=== PATIENT | female | born 1945 | race Caucasian/White ===

== ENCOUNTER → 2016-09-15 | Outpatient (CLI) | payer BC ==
[2016-09-15 15:50] LABS: BASO % 0.3 %; BASO ABS # 0.02 K/uL (0-0.2); COMPLETE YES; HEMATOCRIT 41.2 % (37-47); IG% 0.2 %; LYMPH % 15.9 %; LYMPH ABS # 0.92 K/uL (1.2-3.4); MEAN CELL VOLUME 86.7 fL (80-100); MEAN CORPUSCULAR HEMOGLOBIN 29.5 pg (25-34); MEAN PLATELET VOLUME 10.1 fL (7.4-10.4); MONO % 8.5 %; NEUT % 74.1 %; PLATELET COUNT 248 K/uL (130-400); RED BLOOD COUNT 4.75 M/uL (4.2-5.4); WHITE BLOOD COUNT 5.79 K/uL (4.8-10.8)
[2016-09-15 16:06] LABS: ALT/SGPT 22 U/L (12-78); BLOOD UREA NITROGEN 15 mg/dl (7-18); CALCIUM 9.4 mg/dl (8.5-10.1); CARBON DIOXIDE 29 mmol/L (21-32); CHLORIDE 101 mmol/L (98-107); GLUCOSE 106 mg/dl (70-99); POTASSIUM 3.8 mmol/L (3.5-5.1); SODIUM 135 mmol/L (136-145)
[2016-09-15 16:17] LABS: ALB/GLOB RATIO 1.4 (0.9-2); ALKALINE PHOSPHATASE 63 U/L (45-117); AST/SGOT 11 U/L (15-37)
== END | disposition home or self-care (01) ==
LOC: C.LABSPEC 15:16
PROVIDERS: ATTEND Internal Medicine
DX: R53.83 Other fatigue (principal); E03.9 Hypothyroidism, unspecified; R11.10 Vomiting, unspecified

== ENCOUNTER 2024-10-05 21:17 | Observation (INO) ==
--- NOTE | 2024-10-05 22:04 | Emergency Department Note ---
Impression & Plan Acute hyponatremia, Visual disturbance, Slow transit constipation ED Provider Note CHIEF COMPLAINT: Visual disturbances HISTORY OF PRESENT ILLNESS: This 79-year-old female patient presents to the emergency department via private vehicle companied by her for evaluation of visual disturbances. The patient has been here twice in the past 3 weeks. She was initially evaluated after a fall and found to have a mild vertebral body compression fracture at L1 and incidental degenerative changes. The patient has followed with Dr. Morfin was placed in the a back brace. She states she was seen back here about a week ago for constipation and that she believes to be an abdominal hernia. The patient states she has had bowel movements and her abdomen is now softer. She denies any pain surrounding the hernia. She states that yesterday, she developed some spots in her vision and seeing shadows on her bedsheet as well as her 's hand when he brought her medications. She states the spots primarily were in the light fixture and on the television, but she did also noticed them on her 's shirt as well. She states that the visual disturbances come and go. She does report a history of migraine with aura and states this is not like her aura at all. She does not really have a headache. She denies any trouble with her speech or memory. She denies any chest pain or difficulty breathing. No weakness. She has been laid up in bed the past 3 to 4 days due to the constipation and use of MiraLAX. She states she then developed some nausea and vomiting and was worried about injuring her back so remained in bed. The patient denies any numbness or tingling. No facial droop. She is eating and drinking without difficulty. She has not tried any medication for her symptoms. She denies any history of similar symptoms in the past. Pt. denies head injury with the initial fall, but now is questioning if she may have struck her head and have internal injury. History provided by: Patient REVIEW OF SYSTEMS: A 10 system review of systems was performed with positives and pertinent negatives listed in the history of present illness. All other systems were reviewed and are negative. ALLERGIES: NKDA PHYSICAL EXAM: VITALS: Vitals are noted on the nurse's note and reviewed by myself. GENERAL: This is a 79-year-old female, in no acute distress, nondiaphoretic, well-developed well-nourished. SKIN: The skin was without rashes, erythema, edema, or bruising. There is no tenting of the skin. Capillary refill less than 2 seconds. HEAD: Normocephalic atraumatic. EARS: External auditory canals clear, tympanic membranes pearly rivera without erythema or effusion bilaterally. No hemotympanum. Negative choudhury sign EYES: Pupils equal round and reactive to light and accommodation. Conjunctivae without injection, sclerae without icterus. Extraocular movements intact. NOSE: Patent, turbinates without inflammation or discharge. No sinus tenderness. MOUTH: Mucous membranes moist. Tonsils are not enlarged. Pharynx without erythema or exudate. Uvula midline. Airway patent. Tongue does not deviate. NECK: Supple without nuchal rigidity. No lymphadenopathy. Cervical spine is nontender. No JVD. HEART: Regular rate and rhythm without murmurs gallops or rubs. LUNGS: Clear to auscultation bilaterally without wheezes, rales or rhonchi. No retractions or accessory muscle use. MUSCULOSKELETAL: No muscle atrophy, erythema, or edema noted. Full range of motion without joint tenderness in all extremities. No tenderness to palpation. Normal gait. Strength 5/5 throughout. NEURO: Patient was alert and oriented to person place and time. Normal sensation to light and sharp touch. Deep tendon reflexes 2+ throughout. No focal neurological deficits. An order was placed for continuous alarm security or surveillance monitor. The monitor showed a normal sinus rhythm at a ventricular rate of 68 bpm, per my interpretation. EKG was reviewed by myself and found to be Normal Sinus Rhythm at a rate of 67 beats per minute and per my interpretation reveals no ST elevation or depression. No T wave inversion. When compared to EKG completed on 12/24/2022, no significant change was noted. Imaging as interpreted by myself and the radiologist revealed no acute findings, with radiologist interpretation as above. I agree with the radiologist's findings as based upon my independent interpretation. EMERGENCY DEPARTMENT COURSE: The patient was evaluated as above. The patient presents to the emergency department due to visual disturbances. The symptoms seemed to start yesterday evening, about 24 hours ago. They have been intermittent in nature. The patient is currently being managed for lumbar compression fracture at L1 and subsequently constipation. She was on MiraLAX and developed some nausea and vomiting over the past 2 days. IV access obtained, labs were drawn. Labs reviewed. Per my interpretation, no significant leukocytosis or anemia. No thrombocytopenia. Coags normal. Renal, liver function without significant abnormality. Troponin is 5.9. Patient was found to be hyponatremic with a sodium of 121. Potassium is 4.2. Magnesium is 2.0. UA with trace ketones, trace leukocyte esterace. UDS negative. CT imaging as above. No ICH or other acute abnormalities. The patient was updated on the laboratory findings. I do suspect the hyponatremia is contributing to her symptoms. Given the hyponatremia, I do recommend inpatient care. The patient was agreeable. I discussed the case with Dr. Cardoso, Hospitalist physician for [facility]. He did agree to evaluate the patient for admission. Please see his dictation regarding ongoing management and care. Case was discussed with the attending physician. I attest that I have personally reviewed the patient medication list. I attest that I have reviewed the patient's blood pressure and it was found to be mildly elevated. Further management by the hospitalist. GCS: 15 In the evaluation and treatment of this patient the following differential diagnoses were entertained: electrolyte abnormality, metabolic abnormality, trauma, glaucoma,CRAO, CRVO, vitreous detachment, retinal detachment, CVA, TIA, ICH, concussion, migraine, malignancy, as well as other pathologies. The chart was completed utilizing [employer]pipe Speech voice recognition software. Grammatical errors, random word insertions, pronoun errors, and incomplete sentences are an occasional consequence of this system due to software limitations, ambient noise, and hardware issues. Any formal questions or concerns about the content, text, or information contained within the body of this dictation should be directly addressed to the provider for clarification. Past Med/Surg History Problem List Visual disturbance (Acute) Acute hyponatremia (Acute) Constipation (Acute) Adnexal mass Cystocele Slow transit constipation (Acute) Aortic insufficiency Mitral regurgitation Pelvic prolapse Migraine headache with aura Hypothyroidism Medical History Chronic lymphocytic thyroiditis Esophageal spasm Bronchospasm Asthma Surgical History Hx of cataract surgery S/P adenoidectomy S/P tonsillectomy Family History Mother Gallbladder disease Hypertension Heart disease Lung disease Father Heart disease Parkinsons disease Sister Heart disease Hypertension Seizures Aunt Multiple sclerosis Breast cancer Grandmother (Maternal) Colon cancer Grandmother (Paternal) Colon cancer Social History Smoking Status: Never smoker Second Hand Exposure: No; Hx Alcohol Use: Yes Hx Substance Use: No Preferred Language: Arabic Visual Impairment: No Limitations Hearing Ability: Normal Beliefs That Will Affect Care: None marital status: marital status details: lives with partner Current Living Situation: Significant Other current occupational status: employed Feels Safe at Home: Yes Childhood Exposure to Second-Hand Smoke: Yes Diet: regular during the past year weight has: remained stable Dental Care, Regularly: Yes Physical Activity Frequency: 3-4 Times per Week Physical Activity Frequency Comment: 3 mile walks Seatbelt Use: always Sunscreen Use: Yes Allergies Allergies Allergy/AdvReac Type Severity Reaction Status Date / Time polyethylene glycol 3350 AdvReac Intermediate Vomiting Verified 10/05/24 23:20 [From Miralax] Home Meds Home Medications Medication Instructions Recorded Confirmed cholecalciferol (vitamin D3) 25 25 mcg PO DAILY 09/28/24 10/05/24 mcg (1,000 unit) tablet (Vitamin D3) docusate sodium 100 mg capsule 100 mg PO DAILY 09/28/24 10/05/24 (Colace) ibuprofen 200 mg tablet 200 mg PO Q6H PRN Pain 09/28/24 10/05/24 Previous Rx's Medication Instructions Recorded levothyroxine 112 mcg tablet 112 mcg PO DAILY #90 tabs 03/29/24 Results & Data (ED) Vital Signs Vital Signs - 24 hr 10/05/24 21:23 10/05/24 21:48 10/05/24 21:59 Temperature 36.7 C Temperature Source Temporal Artery Scan Pulse Rate 85 68 Pulse Rate [Finger] 70 Pulse Rhythm [Finger] Respiratory Rate 16 16 Respiratory Depth Normal Blood Pressure 140/71 Blood Pressure [Right Arm] 140/73 Blood Pressure Mean 94 Blood Pressure Mean [Right Arm] 95 Pulse Oximetry 96 96 Oxygen Delivery Method Room Air Room Air Sepsis Recent Fever Within 48 Hours No Sepsis New/Unexplained Change in Mental Status No Sepsis Action Taken by Nursing No Action Required 10/05/24 22:12 10/05/24 22:27 10/05/24 22:57 Temperature Temperature Source Pulse Rate Pulse Rate [Finger] 67 70 76 Pulse Rhythm [Finger] Regular Respiratory Rate 98 H 16 16 Respiratory Depth Normal Blood Pressure Blood Pressure [Right Arm] 135/68 139/53 L 138/66 Blood Pressure Mean Blood Pressure Mean [Right Arm] 90 81 90 Pulse Oximetry 100 94 100 Oxygen Delivery Method Room Air Room Air Room Air Sepsis Recent Fever Within 48 Hours Sepsis New/Unexplained Change in Mental Status Sepsis Action Taken by Nursing 10/05/24 23:12 10/06/24 00:00 10/06/24 01:00 Temperature Temperature Source Pulse Rate Pulse Rate [Finger] 73 68 65 Pulse Rhythm [Finger] Respiratory Rate 16 16 16 Respiratory Depth Normal Normal Blood Pressure Blood Pressure [Right Arm] 144/72 H 128/60 118/60 Blood Pressure Mean Blood Pressure Mean [Right Arm] 96 82 79 Pulse Oximetry 99 98 98 Oxygen Delivery Method Room Air Room Air Room Air Sepsis Recent Fever Within 48 Hours Sepsis New/Unexplained Change in Mental Status Sepsis Action Taken by Nursing 10/06/24 01:54 10/06/24 02:00 Temperature Temperature Source Pulse Rate 65 Pulse Rate [Finger] 64 Pulse Rhythm [Finger] Respiratory Rate 16 Respiratory Depth Normal Blood Pressure Blood Pressure [Right Arm] 93/59 L Blood Pressure Mean Blood Pressure Mean [Right Arm] 70 Pulse Oximetry 98 Oxygen Delivery Method Room Air Sepsis Recent Fever Within 48 Hours Sepsis New/Unexplained Change in Mental Status Sepsis Action Taken by Nursing Laboratory Data 10/05/24 21:36 10/06/24 00:10 Lab Results 10/05/24 10/05/24 10/05/24 Range/Units 21:36 22:13 22:21 WBC 6.44 (4.8-10.8) K/ul RBC 4.23 (4.20-5.40) M/uL Hgb 12.7 (12.0-16.0) g/dl Hct 34.9 L (37.0-47.0) % MCV 82.5 (80.0-100.0) fL MCH 30.0 (25.0-34.0) pg MCHC 36.4 H (32.0-36.0) g/dL RDW Std Deviation 38.8 (36.4-46.3) fL RDW Coeff of Ignacio 13.1 (11.5-14.5) % Plt Count 306 (130-400) K/uL MPV 9.1 L (9.4-12.4) fL Immature Gran % (Auto) 0.3 % Neut % (Auto) 68.1 % Lymph % (Auto) 18.3 % [place] % (Auto) 9.9 % Eos % (Auto) 2.6 % Baso % (Auto) 0.8 % Neut # (Auto) 4.38 (1.40-6.50) K/uL Lymph # (Auto) 1.18 L (1.20-3.40) K/uL [place] # (Auto) 0.64 H (0.11-0.59) K/uL Eos # (Auto) 0.17 (0.00-0.50) K/uL Baso # (Auto) 0.05 (0.00-0.20) K/uL Immature Gran # (Auto) 0.02 (0.01-0.20) K/uL PT 10.8 (9.0-12.0) Seconds INR 1.0 (0.9-1.1) APTT 29 (21-31) Seconds PTT Ratio 1.1 Sodium 121 L (136-145) mmol/L Potassium 4.2 (3.5-5.1) mmol/L Chloride 88 L (98-107) mmol/L Carbon Dioxide 24 (21-32) mmol/L Anion Gap 9 (3-11) BUN 18 (6-23) mg/dl Creatinine 1.04 (0.6-1.2) mg/dl Est Cr Clr Drug Dosing 36.9 ml/min eGFR 55.01 BUN/Creatinine Ratio 17.3 (10-20) Glucose 110 H (70-99(Fasting)) mg/dl POC Glucose 116 H (70-99) mg/dl Calcium 9.8 (8.6-10.3) mg/dl Magnesium 2.0 (1.7-2.4) mg/dl Total Bilirubin 1.4 H (0.2-1.0) mg/dl AST 16 (13-39) U/L ALT 12 (7-52) U/L Alkaline Phosphatase 77 (34-104) U/L Troponin I High Sens 5.9 (0-14) pg/ml Total Protein 7.0 (6.0-8.3) gm/dl Albumin 4.4 (3.4-5.0) gm/dl Globulin 2.6 (2.5-4.0) gm/dl Albumin/Globulin Ratio 1.7 (0.9-2) TSH (0.300-4.500) uIu/ml Urine Color Urine Appearance (Clear) Urine pH (4.5-7.5) Ur Specific [place] (1.000-1.030) Urine Protein (Negative) Urine Glucose (UA) (Negative) Urine Ketones (Negative) Urine Blood (Negative) Urine Nitrite (Negative) Urine Bilirubin (Negative) Urine Urobilinogen (Negative) Ur Leukocyte Esterase (Negative) Urine WBC (Auto) (0-5) /hpf Urine RBC (Auto) (0-2) /hpf U Hyaline Cast (Auto) (0-2) /lpf U Epithel Cells (Auto) (0-2) /hpf Urine Bacteria (Auto) (None Seen) Urine Osmolality (500-800) mOsm/kg Ur Random Sodium mmol/L Urine Comment Urine Opiates Screen (Neg) Ur Methadone, Qual (Neg) Urine Fentanyl Screen (Neg) Urine Barbiturates (Neg) Ur Phencyclidine (PCP) (Neg) U Amphetamin/Meth Scrn (Neg) MDMA (Ecstasy) Screen (Neg) U Benzodiazepines Scrn (Neg) Ur Cocaine Metabolite (Neg) U Marijuana (THC) Screen (Neg) Blood Type A Positive Antibody Screen NEGATIVE 10/05/24 10/06/24 Range/Units 23:20 00:10 WBC (4.8-10.8) K/ul RBC (4.20-5.40) M/uL Hgb (12.0-16.0) g/dl Hct (37.0-47.0) % MCV (80.0-100.0) fL MCH (25.0-34.0) pg MCHC (32.0-36.0) g/dL RDW Std Deviation (36.4-46.3) fL RDW Coeff of Ignacio (11.5-14.5) % Plt Count (130-400) K/uL MPV (9.4-12.4) fL Immature Gran % (Auto) % Neut % (Auto) % Lymph % (Auto) % [place] % (Auto) % Eos % (Auto) % Baso % (Auto) % Neut # (Auto) (1.40-6.50) K/uL Lymph # (Auto) (1.20-3.40) K/uL [place] # (Auto) (0.11-0.59) K/uL Eos # (Auto) (0.00-0.50) K/uL Baso # (Auto) (0.00-0.20) K/uL Immature Gran # (Auto) (0.01-0.20) K/uL PT (9.0-12.0) Seconds INR (0.9-1.1) APTT (21-31) Seconds PTT Ratio Sodium 126 L (136-145) mmol/L Potassium (3.5-5.1) mmol/L Chloride (98-107) mmol/L Carbon Dioxide (21-32) mmol/L Anion Gap (3-11) BUN (6-23) mg/dl Creatinine (0.6-1.2) mg/dl Est Cr Clr Drug Dosing ml/min eGFR BUN/Creatinine Ratio (10-20) Glucose (70-99(Fasting)) mg/dl POC Glucose (70-99) mg/dl Calcium (8.6-10.3) mg/dl Magnesium (1.7-2.4) mg/dl Total Bilirubin (0.2-1.0) mg/dl AST (13-39) U/L ALT (7-52) U/L Alkaline Phosphatase (34-104) U/L Troponin I High Sens (0-14) pg/ml Total Protein (6.0-8.3) gm/dl Albumin (3.4-5.0) gm/dl Globulin (2.5-4.0) gm/dl Albumin/Globulin Ratio (0.9-2) TSH 1.911 (0.300-4.500) uIu/ml Urine Color Yellow Urine Appearance Clear (Clear) Urine pH 6.5 (4.5-7.5) Ur Specific [place] 1.008 (1.000-1.030) Urine Protein Negative (Negative) Urine Glucose (UA) Negative (Negative) Urine Ketones Trace H (Negative) Urine Blood Negative (Negative) Urine Nitrite Negative (Negative) Urine Bilirubin Negative (Negative) Urine Urobilinogen Negative (Negative) Ur Leukocyte Esterase Trace H (Negative) Urine WBC (Auto) 0-5 (0-5) /hpf Urine RBC (Auto) 0-2 (0-2) /hpf U Hyaline Cast (Auto) 0-2 (0-2) /lpf U Epithel Cells (Auto) 0-2 (0-2) /hpf Urine Bacteria (Auto) None Seen (None Seen) Urine Osmolality 86 L (500-800) mOsm/kg Ur Random Sodium < 10 mmol/L Urine Comment Urine Opiates Screen Neg (Neg) Ur Methadone, Qual Neg (Neg) Urine Fentanyl Screen Neg (Neg) Urine Barbiturates Neg (Neg) Ur Phencyclidine (PCP) Neg (Neg) U Amphetamin/Meth Scrn Neg (Neg) MDMA (Ecstasy) Screen Neg (Neg) U Benzodiazepines Scrn Neg (Neg) Ur Cocaine Metabolite Neg (Neg) U Marijuana (THC) Screen Neg (Neg) Blood Type Antibody Screen Administered Medications Discontinued Medications Sodium Chloride (Nss) 1,000 mls @ 999 mls/hr IV .Q1H1M ONE Stop: 10/05/24 22:56 Last Infusion: 10/06/24 02:00 Dose: Infused Documented By: Admin: 10/05/24 23:27 Dose: 999 mls/hr Documented By: DEMAR Ioversol (Optiray 320 125ml) 118 ml IV ONCE ONE Stop: 10/05/24 23:00 Last Admin: 10/05/24 22:59 Dose: 118 ml Documented By: GES Imaging Data Radiologist's Impression: Head CT 10/05/24 21:57 Exam(s): CT HEAD Without Contrast EXAM: CT Head Without Intravenous Contrast CLINICAL HISTORY: Reason for exam: neuro deficit, acute stroke suspected. TECHNIQUE: Axial computed tomography images of the head/brain without intravenous contrast. CTDI is 37 mGy and DLP is 624 mGy-cm. Automated exposure control was utilized for the study. A dose lowering technique was utilized adhering to the principles of ALARA. COMPARISON: Prior head CT from December 24, 2022. FINDINGS: Brain: Unremarkable. No hemorrhage. No significant white matter disease. No edema. Ventricles: Unremarkable. No ventriculomegaly. Bones/joints: Unremarkable. No acute fracture. Soft tissues: Unremarkable. Sinuses: Unremarkable as visualized. No acute sinusitis. Mastoid air cells: Unremarkable as visualized. No mastoid effusion. IMPRESSION: No evidence of acute intracranial pathology. Electronically signed by: Vickie Lee MD 10/06/24 00:34 AM Head CTA 10/05/24 21:57 Exam(s): CTA HEAD With Contrast IV Amt: 118cc opti 320 EXAM: CT Angiography Head With Intravenous Contrast CLINICAL HISTORY: Reason for exam: neuro deficit, acute stroke suspected. TECHNIQUE: Axial computed tomographic angiography images of the head with intravenous contrast. CTDI is 37 mGy and DLP is 624 mGy-cm. Automated exposure control was utilized for the study. A dose lowering technique was utilized adhering to the principles of ALARA. MIP reconstructed images were created and reviewed. CONTRAST: Patient received 118cc opti 320 of IV contrast COMPARISON: No relevant prior studies available. FINDINGS: The dural venous sinuses are patent. Right internal carotid artery: No acute findings. Intracranial segment is patent with no significant stenosis. No aneurysm. Right anterior cerebral artery: Unremarkable. No occlusion or significant stenosis. No aneurysm. Right middle cerebral artery: Unremarkable. No occlusion or significant stenosis. No aneurysm. Right posterior cerebral artery: Unremarkable. No occlusion or significant stenosis. No aneurysm. Right vertebral artery: Unremarkable as visualized. Left internal carotid artery: No acute findings. Intracranial segment is patent with no significant stenosis. No aneurysm. Left anterior cerebral artery: Unremarkable. No occlusion or significant stenosis. No aneurysm. Left middle cerebral artery: Unremarkable. No occlusion or significant stenosis. No aneurysm. Left posterior cerebral artery: Unremarkable. No occlusion or significant stenosis. No aneurysm. Left vertebral artery: Unremarkable as visualized. Basilar artery: Unremarkable. No occlusion or significant stenosis. No aneurysm. IMPRESSION: Negative CT angiogram of the head. Electronically signed by: Vickie Lee MD 10/06/24 00:54 AM Neck CTA 10/05/24 21:57 Exam(s): CTA NECK With Contrast IV Amt: 118cc opti 320 EXAM: CT Angiography Neck With Intravenous Contrast CLINICAL HISTORY: Reason for exam: neuro deficit, acute stroke suspected. TECHNIQUE: Routine carotid CT angiography protocol was performed with intravenous contrast. NASCET criteria using the distal ICAs for comparison were used for evaluation of stenoses. CTDI is 37 mGy and DLP is 624 mGy-cm. Automated exposure control was utilized for the study. A dose lowering technique was utilized adhering to the principles of ALARA. MIP reconstructed images were created and reviewed. CONTRAST: Patient received 118cc opti 320 of IV contrast COMPARISON: None. FINDINGS: VASCULATURE: Right common carotid artery: Unremarkable. No occlusion or significant stenosis. No dissection. Right internal carotid artery: Unremarkable. Extracranial segment is patent with no occlusion or significant stenosis. No dissection. Right external carotid artery: Unremarkable. No occlusion. Right vertebral artery: Unremarkable. No occlusion or significant stenosis. No dissection. Left common carotid artery: Unremarkable. No occlusion or significant stenosis. No dissection. Left internal carotid artery: Unremarkable. Extracranial segment is patent with no occlusion or significant stenosis. No dissection. Left external carotid artery: Unremarkable. No occlusion. Left vertebral artery: Unremarkable. No occlusion or significant stenosis. No dissection. NECK: Bones/joints: Severe spinal canal stenosis at C4-5. No acute fracture. Soft tissues: Prominent mediastinal lymph nodes. Prominent cervical lymph nodes and lingual tonsils. Lung apices: Clear. CAROTID STENOSIS REFERENCE USING NASCET CRITERIA: % ICA stenosis = (1 - narrowest ICA diameter/diameter of distal cervical ICA) x 100. Mild - <50% stenosis. Moderate - 50-69% stenosis. Severe - 70-94% stenosis. Near occlusion - 95-99% stenosis. Occluded - 100% stenosis. IMPRESSION: Negative CTA neck. Electronically signed by: Vickie Lee MD 10/06/24 01:44 AM Discharge Plan Visit Data Chief Complaint: Visual Disturbance Stated Complaint: EXPERIENCING VISUAL/NEUROLOGICAL DISTURBANCES ED Provider: Bill Khalil ED Midlevel Provider: Dona Barber Discharge Problem: Acute hyponatremia, Visual disturbance, Slow transit constipation Patient Disposition: Admitted As Inpatient Condition: Good Forms Stand Alone Forms: [facility] Prescriptions Prescriptions: No Action levothyroxine 112 mcg tablet 112 mcg PO DAILY Qty: 90 3RF ibuprofen 200 mg Tablet 200 mg PO Q6H PRN (Reason: Pain) docusate sodium [Colace] 100 mg Capsule 100 mg PO DAILY Patient Comments: Depending on how pt feels, she may take 200mg instead of 100mg - 09/28/24 cholecalciferol (vitamin D3) [Vitamin D3] 25 mcg (1,000 unit) Tablet 25 mcg PO DAILY Referrals Referrals: Tonya Love MD [Primary Care Provider] -
[2024-10-05 22:07] LABS: Hematocrit (blood only) 34.9 % (37.0-47.0); Hemoglobin 12.7 g/dl (12.0-16.0); Immature Granulocytes # (auto) 0.02 K/uL (0.01-0.20); Immature Granulocytes % (auto) 0.3 %; Mean Corpuscular Hemoglobin 30.0 pg (25.0-34.0); Mean Corpuscular Volume 82.5 fL (80.0-100.0); Platelet Count 306 K/uL (130-400); RDW Standard Deviation 38.8 fL (36.4-46.3); Red Blood Count 4.23 M/uL (4.20-5.40); White Blood Count 6.44 K/ul (4.8-10.8)
[2024-10-05 22:26] LABS: Alanine Aminotransferase 12.0 U/L (7-52); Albumin Globulin Ratio 1.7 (0.9-2); Alkaline Phosphatase 77.0 U/L (34-104); Anion Gap 9.0 (3-11); Bilirubin,Total 1.4 mg/dl (0.2-1.0); Blood Urea Nitrogen 18.0 mg/dl (6-23); Calcium 9.8 mg/dl (8.6-10.3); Carbon Dioxide 24.0 mmol/L (21-32); Chloride 88.0 mmol/L (98-107); Creatinine Clr Calc Pharmacy 36.9 ml/min; Globulin 2.6 gm/dl (2.5-4.0); Glucose 110.0 mg/dl (70-99(Fasting)); Magnesium 2.0 mg/dl (1.7-2.4); Potassium 4.2 mmol/L (3.5-5.1); Sodium 121.0 mmol/L (136-145); Total Protein 7.0 gm/dl (6.0-8.3)
[2024-10-05 22:42] LABS: INR 1.0 (0.9-1.1); Partial Thromboplastin Time 29 Seconds (21-31); Prothrombin Time 10.8 Seconds (9.0-12.0)
[2024-10-05] MEDS: OPTIRAY 320 125ml IV ONE (22:59)
[2024-10-05] MEDS: SODIUM CHLORIDE 0.9% 1,000 ML IV ONE (23:27)
--- NOTE | 2024-10-05 23:30 | History & Physical Report ---
Date of Service October 05, 2024 Assessment & Plan (1) Acute hyponatremia: (2) Visual disturbance: (3) Hypothyroidism: Plan This is a 79 year old female with a PMH of hypothyroidism, lumbar vertebral fracture - coming in with visual disturbance; found to have hyponatremia Acute Hyponatremia - likely from volume depletion from the large BM and nausea/vomiting - IV fluids started - check urine sodium and urine osm - sodium q4 Visual Disturbance - likely from the change in sodium - head CT and CTA head/neck are pending due to recent fall (on 09/24) Hypothyroidism - cont synthroid - check TSH History of Present Illness Chief Complaint: Blurry Vision, spots Primary Care Provider: Tonya Love MD This is a 79 year old female with a PMH of hypothyroidism, lumbar vertebral fracture - coming in with visual disturbance. On 09/24, presented to the ER for a mechanical fall; found to have an L1 fracture for which she has been using a brace. States that she's been having constipation and was using miralax and other bowel care medications at home; she then had a large bowel movement. After this, she felt nausea/vomiting and had difficulty keeping anything down. Her concern grew when she felt she was seeing spots and her vision wasn't at baseline. On arrival here, labs were drawn and she had a significant hyponatremia with sodium at 121. Head CT and CTA head/neck were ordered and pending. Allergies Allergy/AdvReac Type Severity Reaction Status Date / Time polyethylene glycol 3350 AdvReac Intermediate Vomiting Verified 10/05/24 23:20 [From Miralax] Home Medications Medication Instructions Recorded Confirmed Type levothyroxine 112 mcg tablet 112 mcg PO DAILY #90 tabs 03/29/24 10/05/24 Rx cholecalciferol (vitamin D3) 25 25 mcg PO DAILY 09/28/24 10/05/24 History mcg (1,000 unit) tablet (Vitamin D3) docusate sodium 100 mg capsule 100 mg PO DAILY 09/28/24 10/05/24 History (Colace) ibuprofen 200 mg tablet 200 mg PO Q6H PRN Pain 09/28/24 10/05/24 History Past Med/Surg History Problem List (Updated 10/05/24 @ 23:36 by GEORGE EmeryC) Visual disturbance (Acute) Acute hyponatremia (Acute) Constipation (Acute) Adnexal mass Cystocele Slow transit constipation (Acute) Aortic insufficiency Mitral regurgitation Pelvic prolapse Migraine headache with aura Hypothyroidism Medical History Asthma Bronchospasm Chronic lymphocytic thyroiditis Esophageal spasm Surgical History Hx of cataract surgery S/P adenoidectomy S/P tonsillectomy Family History Mother Gallbladder disease Hypertension Heart disease Lung disease Father Heart disease Parkinsons disease Sister Heart disease Hypertension Seizures Aunt Multiple sclerosis Breast cancer Grandmother (Maternal) Colon cancer Grandmother (Paternal) Colon cancer Social History Smoking Status: Never smoker Second Hand Exposure: No; Hx Alcohol Use: Yes Hx Substance Use: No Preferred Language: Romanian Visual Impairment: No Limitations Hearing Ability: Normal Beliefs That Will Affect Care: None marital status: marital status details: lives with partner Current Living Situation: Significant Other current occupational status: employed Feels Safe at Home: Yes Childhood Exposure to Second-Hand Smoke: Yes Diet: regular during the past year weight has: remained stable Dental Care, Regularly: Yes Physical Activity Frequency: 3-4 Times per Week Physical Activity Frequency Comment: 3 mile walks Seatbelt Use: always Sunscreen Use: Yes Review of Systems Review of Systems: Constitutional: No Weight Change, No Fever, No Chills, No Night Sweats, No Fatigue, No Malaise ENT/Mouth: No Hearing Changes, No Ear Pain, No Nasal Congestion, No Sinus Pain, No Hoarseness, No sore throat, No Rhinorrhea, No Swallowing Difficulty Eyes: No Eye Pain, No Swelling, No Redness, No Foreign Body, No Discharge, No Vision Changes Cardiovascular: No Chest Pain, No SOB, No PND, No Dyspnea on Exertion, No Orthopnea, No Claudication, No Edema, No Palpitations Respiratory: No Cough, No Sputum, No Wheezing, No Smoke Exposure, No Dyspnea Gastrointestinal: No Nausea, No Vomiting, No Diarrhea, No Constipation, No Pain, No Heartburn, No Anorexia, No Dysphagia, No Hematochezia, No Melena, No Flatulence, No Jaundice Genitourinary: No Dysmenorrhea, No DUB, No Dyspareunia, No Dysuria, No Urinary Frequency, No Hematuria, No Urinary Incontinence, No Urgency, No Flank Pain, No Urinary Flow Changes, No Hesitancy Musculoskeletal: No Arthralgias, No Myalgias, No Joint Swelling, No Joint Stiffness, No Back Pain, No Neck Pain, No Injury History Skin: No Skin Lesions, No Pruritis, No Hair Changes, No Breast/Skin Changes, No Nipple Discharge Neuro: No Weakness, No Numbness, No Paresthesias, No Loss of Consciousness, No Syncope, No Dizziness, No Headache, No Coordination Changes, No Recent Falls Psych: No Anxiety/Panic, No Depression, No Insomnia, No Personality Changes, No Delusions, No Rumination, No SI/HI/AH/VH, No Social Issues, No Memory Changes, No Violence/Abuse Hx., No Eating Concerns Heme/Lymph: No Bruising, No Bleeding, No Transfusions History, No Lymphadenopathy Endocrine: No Polyuria, No Polydipsia, No Temperature Intolerance Physical Exam Physical Exam: VITALS: Reviewed. WEIGHT/BMI reviewed. GEN: Healthy appearing, well-developed, NAD. PSYCH: Good Judgment. AOx3. Normal memory, mood, and affect. HEENT -Head: NC/AT; -Eyes: PERRL, EOMI. No discharge or redn ess; -Ears: External ears are normal. Normal TMs. -Nose: Normal nares. -Mouth and throat: MMM. Normal gums, muc giacomo, palate,. Good dentition. NECK: Supple, with no masses. CV: RRR, no m/r/g. LUNGS: CTAB, no w/r/c. ABD: Soft, NT/ND, NBS, no masses or organomegaly. : N/A SKIN: Warm, well perfused. No skin rashes or abnormal lesions. MSK: No deformities, Normal gait. EXT: No clubbing, cyanosis, or edema. NEURO: Ambulating with no limitations. Normal muscle strength and tone. No focal deficits. Results & Data Results & Data Vital Signs (Past 12 Hours) Vital Signs Temp Pulse Pulse Resp BP BP Pulse Ox 10/05/24 22:57 76 16 138/66 100 10/05/24 22:27 70 16 139/53 L 94 10/05/24 22:12 67 98 H 135/68 100 10/05/24 21:59 68 10/05/24 21:48 70 16 140/73 96 10/05/24 21:23 36.7 C 85 16 140/71 96 O2 Del Method 10/05/24 22:57 Room Air 10/05/24 22:27 Room Air 10/05/24 22:12 Room Air 10/05/24 21:59 10/05/24 21:48 Room Air 10/05/24 21:23 Room Air Laboratory Results 10/05/24 10/05/24 10/05/24 22:21 22:13 21:36 WBC 6.44 RBC 4.23 Hgb 12.7 Hct 34.9 L MCV 82.5 MCH 30.0 MCHC 36.4 H RDW Std Deviation 38.8 RDW Coeff of Ignacio 13.1 Plt Count 306 MPV 9.1 L Immature Gran % (Auto) 0.3 Neut % (Auto) 68.1 Lymph % (Auto) 18.3 Vernon % (Auto) 9.9 Eos % (Auto) 2.6 Baso % (Auto) 0.8 Neut # (Auto) 4.38 Lymph # (Auto) 1.18 L Vernon # (Auto) 0.64 H Eos # (Auto) 0.17 Baso # (Auto) 0.05 Immature Gran # (Auto) 0.02 PT 10.8 INR 1.0 APTT 29 PTT Ratio 1.1 Sodium 121 L Potassium 4.2 Chloride 88 L Carbon Dioxide 24 Anion Gap 9 BUN 18 Creatinine 1.04 Est Cr Clr Drug Dosing 36.9 eGFR 55.01 BUN/Creatinine Ratio 17.3 Glucose 110 H POC Glucose 116 H Calcium 9.8 Magnesium 2.0 Total Bilirubin 1.4 H AST 16 ALT 12 Alkaline Phosphatase 77 Troponin I High Sens 5.9 Total Protein 7.0 Albumin 4.4 Globulin 2.6 Albumin/Globulin Ratio 1.7 Blood Type A Positive Antibody Screen NEGATIVE PG Care Time/CCT Total # of Minutes Spent Total Time Spent with Patient: Total time spent is greater than 50% in coordination of care (as documented) at patient's floor/unit and/or counseling patient: Coding Level of Care Code 53066 INT INP/OBS CARE 3/75MIN Diagnoses Acute hyponatremia E87.1 Visual disturbance H53.9 Hypothyroidism E03.9
[2024-10-05 23:48] LABS: Appearance Urine Clear (Clear); Bacteria Urine Automated None Seen (None Seen); Cast Urine Automated 0-2 /lpf (0-2); Epithelial Cell Urine Auto 0-2 /hpf (0-2); Glucose Urine UA Negative (Negative); RBC Urine Automated 0-2 /hpf (0-2); WBC Urine Automated 0-5 /hpf (0-5)
[2024-10-06 00:08] LABS: Amphetamines+Metham, Urine Neg (Neg); MDMA (Ecstacy), Urine Neg (Neg); Marijuana, Urine Neg (Neg)
[2024-10-06 00:34] LABS: Sodium 126.0 mmol/L (136-145)
--- NOTE | 2024-10-06 00:34 | CT Scan Report ---
Exam(s): CT HEAD Without Contrast EXAM: CT Head Without Intravenous Contrast CLINICAL HISTORY: Reason for exam: neuro deficit, acute stroke suspected. TECHNIQUE: Axial computed tomography images of the head/brain without intravenous contrast. CTDI is 37 mGy and DLP is 624 mGy-cm. Automated exposure control was utilized for the study. A dose lowering technique was utilized adhering to the principles of ALARA. COMPARISON: Prior head CT from December 24, 2022. FINDINGS: Brain: Unremarkable. No hemorrhage. No significant white matter disease. No edema. Ventricles: Unremarkable. No ventriculomegaly. Bones/joints: Unremarkable. No acute fracture. Soft tissues: Unremarkable. Sinuses: Unremarkable as visualized. No acute sinusitis. Mastoid air cells: Unremarkable as visualized. No mastoid effusion. IMPRESSION: No evidence of acute intracranial pathology. Electronically signed by: Vickie Lee MD 10/06/24 00:34 AM
--- NOTE | 2024-10-06 00:55 | CT Scan Report ---
Exam(s): CTA HEAD With Contrast IV Amt: 118cc opti 320 EXAM: CT Angiography Head With Intravenous Contrast CLINICAL HISTORY: Reason for exam: neuro deficit, acute stroke suspected. TECHNIQUE: Axial computed tomographic angiography images of the head with intravenous contrast. CTDI is 37 mGy and DLP is 624 mGy-cm. Automated exposure control was utilized for the study. A dose lowering technique was utilized adhering to the principles of ALARA. MIP reconstructed images were created and reviewed. CONTRAST: Patient received 118cc opti 320 of IV contrast COMPARISON: No relevant prior studies available. FINDINGS: The dural venous sinuses are patent. Right internal carotid artery: No acute findings. Intracranial segment is patent with no significant stenosis. No aneurysm. Right anterior cerebral artery: Unremarkable. No occlusion or significant stenosis. No aneurysm. Right middle cerebral artery: Unremarkable. No occlusion or significant stenosis. No aneurysm. Right posterior cerebral artery: Unremarkable. No occlusion or significant stenosis. No aneurysm. Right vertebral artery: Unremarkable as visualized. Left internal carotid artery: No acute findings. Intracranial segment is patent with no significant stenosis. No aneurysm. Left anterior cerebral artery: Unremarkable. No occlusion or significant stenosis. No aneurysm. Left middle cerebral artery: Unremarkable. No occlusion or significant stenosis. No aneurysm. Left posterior cerebral artery: Unremarkable. No occlusion or significant stenosis. No aneurysm. Left vertebral artery: Unremarkable as visualized. Basilar artery: Unremarkable. No occlusion or significant stenosis. No aneurysm. IMPRESSION: Negative CT angiogram of the head. Electronically signed by: Vickie Lee MD 10/06/24 00:54 AM
[2024-10-06 01:06] LABS: Thyroid Stimulating Hormone 1.911 uIu/ml (0.300-4.500)
--- NOTE | 2024-10-06 01:45 | CT Scan Report ---
Exam(s): CTA NECK With Contrast IV Amt: 118cc opti 320 EXAM: CT Angiography Neck With Intravenous Contrast CLINICAL HISTORY: Reason for exam: neuro deficit, acute stroke suspected. TECHNIQUE: Routine carotid CT angiography protocol was performed with intravenous contrast. NASCET criteria using the distal ICAs for comparison were used for evaluation of stenoses. CTDI is 37 mGy and DLP is 624 mGy-cm. Automated exposure control was utilized for the study. A dose lowering technique was utilized adhering to the principles of ALARA. MIP reconstructed images were created and reviewed. CONTRAST: Patient received 118cc opti 320 of IV contrast COMPARISON: None. FINDINGS: VASCULATURE: Right common carotid artery: Unremarkable. No occlusion or significant stenosis. No dissection. Right internal carotid artery: Unremarkable. Extracranial segment is patent with no occlusion or significant stenosis. No dissection. Right external carotid artery: Unremarkable. No occlusion. Right vertebral artery: Unremarkable. No occlusion or significant stenosis. No dissection. Left common carotid artery: Unremarkable. No occlusion or significant stenosis. No dissection. Left internal carotid artery: Unremarkable. Extracranial segment is patent with no occlusion or significant stenosis. No dissection. Left external carotid artery: Unremarkable. No occlusion. Left vertebral artery: Unremarkable. No occlusion or significant stenosis. No dissection. NECK: Bones/joints: Severe spinal canal stenosis at C4-5. No acute fracture. Soft tissues: Prominent mediastinal lymph nodes. Prominent cervical lymph nodes and lingual tonsils. Lung apices: Clear. CAROTID STENOSIS REFERENCE USING NASCET CRITERIA: % ICA stenosis = (1 - narrowest ICA diameter/diameter of distal cervical ICA) x 100. Mild - <50% stenosis. Moderate - 50-69% stenosis. Severe - 70-94% stenosis. Near occlusion - 95-99% stenosis. Occluded - 100% stenosis. IMPRESSION: Negative CTA neck. Electronically signed by: Vickie Lee MD 10/06/24 01:44 AM
[2024-10-06] MEDS ORDERED: ACETAMINOPHEN 325 MG TAB PO PRN (03:21)
[2024-10-06] MEDS ORDERED: ONDANSETRON INJ 2 MG/ML 2 ML VIAL IV PRN (03:21)
[2024-10-06] MEDS ORDERED: MELATONIN 3 MG TAB PO PRN (03:21)
[2024-10-06] MEDS: LEVOTHYROXINE SODIUM 112 MCG TABLET PO SCH (05:38)
--- NOTE | 2024-10-06 10:49 | Nephrology Consultation ---
Date of Consultation October 06, 2024 Assessment & Plan (1) Acute hyponatremia: (2) Hypothyroidism: (3) Visual disturbance: (4) Constipation: Plan 79 y o F , otherwise healthy except some degenerative disease and history of constipation, recently had a fall and mild closed lumbar vertebral fracture, presented to the hospital with visual disturbances, nausea, vomiting and noted to have acute hyponatremia, sodium was 121. During recent ER visits her sodium was noted to be slightly low at 132. Workup otherwise unremarkable, has not been on thiazide diuretics. She was given IV normal saline and admission as her blood pressure was relatively low and sodium rapidly improved to 126 within few hours. Unclear whether her symptoms were related to hyponatremia but that remains a possibility. Hyponatremia possibly multifactorial but mainly due to nausea, vomiting and probably excessive free water intake. --Sodium rapidly improved to 126 within few hours, will not make any other changes, maintain regular p.o. intake and liberalize salt in diet as blood pressure generally low. Repeat serum sodium now if there is rapid correction, may need to give some D5W. Suggested maybe monitoring little bit longer and overnight but she is looking forward to going home if sodium stays stable or improved. --Avoid excessive free water intake but no strict fluid restriction as she has been struggling with constipation. --If discharged this afternoon recommended she does lab Tuesday to make sure sodium staying stable. --May benefit from gastroenterology evaluation for bothersome constipation despite trying or dietary measures and MiraLAX. Thank you for allowing me to participate in your patient's care. It was a pleasure to see Larissa. History of Present Illness Reason for Consultation: Acute hyponatremia Attending Physician: Sincere Hong MD History of Present Illness Ms. Larissa Triplett is A 79-year-old female with recent fall and vertebral body compression fracture admitted to the hospital with acute hyponatremia after she presented with some , visual disturbances. Nephrology consult requested for management of acute hyponatremia. EMR records were reviewed in detail during patient's visit. Larissa presented to ED yesterday after noticing visual disturbances over the last 2 to 3 days. She was initially evaluated on 09/18/24 after a fall and found to have a mild vertebral body compression fracture at L1 and incidental degenerative changes. She had a back brace placed and is following with orthopedic surgery. She had been presented to ER on 09/28/2024 with constipation despite taking Colace and MiraLAX at home. She was given an enema in ER and instructed to continue those at home. She reports having nausea and vomiting after she took MiraLAX. Also started noticing some visual disturbances with seeing vivid colors on different objects and screens which was not there and became concerned. Her blood pressure has been variable but occasionally low with no history of hypertension. Record review over the last 2 to 3 weeks showed her sodium has been slightly low around 132 with no prior history of hyponatremia. On admission yesterday her sodium was 121. Has decent kidney function, baseline creatinine 1.0-1.1 mg/dl. She was given IV normal saline and repeat sodium was 126. Blood pressure has been stable. Urine osmolality was 86 and urine sodium was less than 10. She has not been on thiazide diuretics. She has been eating and drinking normally and reports maybe she has been drinking little too much. No known history of adrenal insufficiency. Has history of hypothyroidism but has been on levothyroxine and TSH was normal. CT abdomen pelvis showed otherwise normal kidney and adrenal gland. No other intra- abdominal pathology other than constipation. Never smoker. Denies excessive alcohol intake. Prior chest x-ray was unremarkable. CT head CTA head neck on admission was unremarkable. No personal history of malignancy. Previously had colonoscopy and mammogram. [employer]. This morning she feels otherwise well, reports complete resolution of visual disturbances. No nausea. Blood pressure relatively low but asymptomatic and that is her baseline. Allergies Allergy/AdvReac Type Severity Reaction Status Date / Time polyethylene glycol 3350 AdvReac Intermediate Vomiting Verified 10/05/24 23:20 [From Miralax] Home Medications Medication Instructions Recorded Confirmed Type levothyroxine 112 mcg tablet 112 mcg PO DAILY #90 tabs 03/29/24 10/05/24 Rx cholecalciferol (vitamin D3) 25 25 mcg PO DAILY 09/28/24 10/05/24 History mcg (1,000 unit) tablet (Vitamin D3) docusate sodium 100 mg capsule 100 mg PO DAILY 09/28/24 10/05/24 History (Colace) ibuprofen 200 mg tablet 200 mg PO Q6H PRN Pain 09/28/24 10/05/24 History Patient History Medical History Chronic lymphocytic thyroiditis Esophageal spasm Bronchospasm Asthma Surgical History Hx of cataract surgery S/P adenoidectomy S/P tonsillectomy Family History Mother Gallbladder disease Hypertension Heart disease Lung disease Father Heart disease Parkinsons disease Sister Heart disease Hypertension Seizures Aunt Multiple sclerosis Breast cancer Grandmother (Maternal) Colon cancer Grandmother (Paternal) Colon cancer Social History Smoking Status: Never smoker Second Hand Exposure: No; Hx Alcohol Use: Yes Alcohol type: beer and wine Hx Substance Use: No Preferred Language: Central [place] Communication Ability: Effective Visual Impairment: No Limitations Hearing Ability: Normal Returned Telephone Equipment Appraiser Required: No Beliefs That Will Affect Care: None marital status: marital status details: lives with partner Current Living Situation: Spouse and Significant Other current occupational status: employed Other Information That Helps Us Care for You: No Feels Safe at Home: Yes Safety Concerns: Feels Safe At This Time Childhood Exposure to Second-Hand Smoke: Yes Diet: regular during the past year weight has: remained stable Dental Care, Regularly: Yes Physical Activity Frequency: 3-4 Times per Week Physical Activity Frequency Comment: 3 mile walks Seatbelt Use: always Sunscreen Use: Yes Assistive Devices: Glasses Review of Systems Review of Systems: All systems reviewed & are unremarkable except as noted in HPI & below Physical Exam Constitutional: WD/WN, vitals as above no acute distress Eyes: + anicteric sclerae ENMT: Ears: no hearing impairment Neck: normal visual inspection Respiratory: no respiratory distress Auscultation: lungs clear to auscultation bilaterally Cardiovascular: Rate/Rhythm: regular rate and regular rhythm Extremities: no edema Gastrointestinal (Abdomen): Inspection/Auscultation: abdomen normal to inspection Musculoskeletal: Extremities: extremities normal to inspection Skin: no rashes, warm and dry Neurologic: no focal motor deficits and not confused Psychiatric: Orientation: alert and oriented x 3 Affect: euthymic affect Results & Data Vital Signs (Past 12 Hours) Vital Signs Temp Pulse Pulse Resp BP BP BP 10/06/24 08:13 36.5 C 76 18 108/67 10/06/24 03:58 10/06/24 03:58 36.4 C L 75 14 127/69 10/06/24 03:35 65 10/06/24 02:32 60 16 92/57 L 10/06/24 02:00 64 16 93/59 L 10/06/24 01:54 65 10/06/24 01:00 65 16 118/60 10/06/24 00:00 68 16 128/60 10/05/24 23:12 73 16 144/72 H 10/05/24 22:57 76 16 138/66 Pulse Ox O2 Del Method 10/06/24 08:13 99 Room Air 10/06/24 03:58 Room Air 10/06/24 03:58 99 Room Air 10/06/24 03:35 10/06/24 02:32 96 Room Air 10/06/24 02:00 98 Room Air 10/06/24 01:54 10/06/24 01:00 98 Room Air 10/06/24 00:00 98 Room Air 10/05/24 23:12 99 Room Air 10/05/24 22:57 100 Room Air PG Care Time/CCT Total # of Minutes Spent Total Time Spent with Patient: Total time spent is greater than 50% in coordination of care (as documented) at patient's floor/unit and/or counseling patient: Coding Level of Care Code 86965 INT INP/OBS CARE 3/75MIN Diagnoses Acute hyponatremia E87.1 Hypothyroidism E03.9 Visual disturbance H53.9 Constipation K59.00
[2024-10-06 11:35] VITALS: BP 144/72; PULSE 70; RESP 20; TEMP 98.8; O2SAT 100
--- NOTE | 2024-10-06 11:48 | Hospitalist Progress Note ---
Date of Service October 06, 2024 Assessment & Plan (1) Acute hyponatremia: Plan: -Na+ corrected to 135 -nephrology consult appreciated -f/u BMP at 2pm, if WNL, ok to d/c home (2) Visual disturbance: Plan: - likely from the change in sodium - head CT and CTA head/neck negative (3) Hypothyroidism: Plan: - cont Synthroid Plan This is a 79 year old female with a PMH of hypothyroidism, lumbar vertebral fracture - coming in with visual disturbance; found to have hyponatremia Admission and Anticipated Discharge Date Admission Date: October 06, 2024 Subjective Pt states she feels better this am. No events overnight. Review of Systems Review of Systems: CONST: Negative for fever, body aches and chills. HENT: Negative for neck pain/stiffness, headache, congestion, sore throat, swelling. EYES: Negative for discharge/pain or vision changes. RESP: Negative for cough/hemoptysis and shortness of breath. CV: Negative chest pain, difficulty breathing, palpitations. ABD: Negative pain, nausea, vomiting. : Negative increase frequency, dysuria, blood in urine or stool. MUSC: Negative for muscle aches, edema. SKIN: Negative rash, lesions/sores. NEURO: Negative headache, dizziness, weakness. Physical Exam Physical Exam: GENERAL APPEARANCE NAD, activity normal for age, well developed/ well nourished, no cyanosis, pallor, or diaphoresis. EYES lids/conjunctiva normal. EARS/NOSE/THROAT Mucous membranes moist, nares normal, lips/teeth normal uvula midline without oral pharyngeal erythema, exudate or swelling TMs normal bilaterally. No lymphangitis/lymphedema. HEAD/NECK normocephalic atraumatic, no facial trauma, neck is supple. RESPIRATORY respiratory effort normal, speaks in full sentences, no tripod position, no accessory muscle use. Lungs clear to auscultation without rhonchi, wheezes, rales CARDIAC Regular rate and rhythm, no edema. ABDOMINAL Soft, ND/NT. No evidence of fluid wave. No pulsatile masses on exam, rebound tenderness, Vasquez sign or pain over Mcburney's point. MUSCLES/EXTREMITIES No abnormal range of motion, no swelling. SKIN Warm, pink and dry. No rashes, dermatoses, petechiae or lesions. NEUROLOGICAL Speech is clear and appropriate. Normal level of consciousness. Gait and coordination are normal. 5/5 strength in all extremities. PSYCH Normal mood and affect. Judgement/competence is appropriate Results & Data Results & Data Vital Signs (Past 12 Hours) Vital Signs Temp Pulse Pulse Resp BP BP BP 10/06/24 11:34 37.1 C 70 20 144/72 H 10/06/24 08:13 36.5 C 76 18 108/67 10/06/24 03:58 10/06/24 03:58 36.4 C L 75 14 127/69 10/06/24 03:35 65 10/06/24 02:32 60 16 92/57 L 10/06/24 02:00 64 16 93/59 L 10/06/24 01:54 65 10/06/24 01:00 65 16 118/60 10/06/24 00:00 68 16 128/60 Pulse Ox O2 Del Method 10/06/24 11:34 100 Room Air 10/06/24 08:13 99 Room Air 10/06/24 03:58 Room Air 10/06/24 03:58 99 Room Air 10/06/24 03:35 10/06/24 02:32 96 Room Air 10/06/24 02:00 98 Room Air 10/06/24 01:54 10/06/24 01:00 98 Room Air 10/06/24 00:00 98 Room Air PG Care Time/CCT Total # of Minutes Spent Total Time Spent with Patient: Total time spent is greater than 50% in coordination of care (as documented) at patient's floor/unit and/or counseling patient: Coding Level of Care Code 53419 SUB INP/OBS CARE 2/35MIN Diagnoses Acute hyponatremia E87.1 Visual disturbance H53.9 Hypothyroidism E03.9
--- NOTE | 2024-10-06 11:52 | Discharge Summary ---
Discharge Summary Date of Service October 06, 2024 Principal Dx & Hospital Course #1 = Principal Diagnosis (1) Acute hyponatremia: -Na+ corrected to 135 -nephrology consult appreciated -f/u BMP at 2pm, if WNL, ok to d/c home (2) Visual disturbance: - likely from the change in sodium - head CT and CTA head/neck negative (3) Hypothyroidism: - cont Synthroid Plan This is a 79 year old female with a PMH of hypothyroidism, lumbar vertebral fracture - coming in with visual disturbance; found to have hyponatremia Admission HPI Per Admitting Provider This is a 79 year old female with a PMH of hypothyroidism, lumbar vertebral fracture - coming in with visual disturbance. On 09/24, presented to the ER for a mechanical fall; found to have an L1 fracture for which she has been using a brace. States that she's been having constipation and was using miralax and other bowel care medications at home; she then had a large bowel movement. After this, she felt nausea/vomiting and had difficulty keeping anything down. Her concern grew when she felt she was seeing spots and her vision wasn't at baseline. On arrival here, labs were drawn and she had a significant hyponatremia with sodium at 121. Head CT and CTA head/neck were ordered and pending. Discharge Exam GENERAL APPEARANCE NAD, activity normal for age, well developed/ well nourished, no cyanosis, pallor, or diaphoresis. EYES lids/conjunctiva normal. EARS/NOSE/THROAT Mucous membranes moist, nares normal, lips/teeth normal uvula midline without oral pharyngeal erythema, exudate or swelling TMs normal bilaterally. No lymphangitis/lymphedema. HEAD/NECK normocephalic atraumatic, no facial trauma, neck is supple. RESPIRATORY respiratory effort normal, speaks in full sentences, no tripod position, no accessory muscle use. Lungs clear to auscultation without rhonchi, wheezes, rales CARDIAC Regular rate and rhythm, no edema. ABDOMINAL Soft, ND/NT. No evidence of fluid wave. No pulsatile masses on exam, rebound tenderness, Vasquez sign or pain over Mcburney's point. MUSCLES/EXTREMITIES No abnormal range of motion, no swelling. SKIN Warm, pink and dry. No rashes, dermatoses, petechiae or lesions. NEUROLOGICAL Speech is clear and appropriate. Normal level of consciousness. Gait and coordination are normal. 5/5 strength in all extremities. PSYCH Normal mood and affect. Judgement/competence is appropriate Discharge Plan Discharge Items Patient Disposition: Home - Self-Care Reason For Visit: HYPONATREMIA Discharge Diagnosis: hyponatremia Condition on Discharge: Good Activity: Resume your previous activity Non-emergency contact: Primary Care Provider Call non-emergency contact if: you have any medication questions Follow-up/Referrals: Tonya Love MD [Primary Care Provider] - Diet: Regular Addtl Attending Provider Instructions: Follow up with PMD within 1 week Pending Studies at Discharge: No Stand-Alone Forms: [employer], Smoking Cessation Medications and DC Order Prescriptions: New magnesium hydroxide [Milk of Magnesia] 400 mg/5 mL suspension 5 ml PO DAILY PRN (Reason: stomach upset) Qty: 355 0RF Continued levothyroxine 112 mcg tablet 112 mcg PO DAILY Qty: 90 3RF ibuprofen 200 mg Tablet 200 mg PO Q6H PRN (Reason: Pain) docusate sodium [Colace] 100 mg Capsule 100 mg PO DAILY Patient Comments: Depending on how pt feels, she may take 200mg instead of 100mg - 09/28/24 cholecalciferol (vitamin D3) [Vitamin D3] 25 mcg (1,000 unit) Tablet 25 mcg PO DAILY Discharge Orders: Discharge Order (Routine); Ordered 10/06/24 Ordered By: Sincere Hong Admission Data Admit Date/Time: 10/06/24 00:36 Attending Provider: Sincere Hong Admit Provider: Romina Cardoso Primary Care Provider: Tonya Love Other Providers: Romina Cardoso; Grace Caal Hospital Stay Data Consultations 10/05/24 22:41 ED Decision to Admit Stat 10/06/24 09:10 Consult Nephrology Routine Diagnostic Imagining Performed 10/05/24 21:57 CT angio head w con Stat CT angio neck with con Stat CT head/brain wo con Stat Pending Results Patient Have Any Pending Studies at Discharge: No Discharge Instructions Given to Patient (Per Discharging Provider) Follow up with PMD within 1 week Total Time Total Time Spent Total Time Spent (In Minutes): 50 Coding Level of Care Code 87633 INP/OBS DISCH >30 MIN Diagnoses Acute hyponatremia E87.1 Visual disturbance H53.9 Hypothyroidism E03.9
[2024-10-06] MEDS: ENOXAPARIN INJ 40 MG/0.4 ML SYR SQ SCH (12:27)
--- NOTE | 2024-10-07 16:08 | Electrocardiogram Report ---
Test Reason : Blood Pressure : */* mmHG Vent. Rate : 67 BPM Atrial Rate : 67 BPM P-R Int : 154 ms QRS Dur : 88 ms QT Int : 406 ms P-R-T Axes : 71 67 61 degrees QTcB Int : 429 ms Normal sinus rhythm Minimal voltage criteria for LVH, may be normal variant ( Hammad product ) Borderline ECG When compared with ECG of 24-Dec-2022 11:32, T wave inversion now evident in Anterior leads Confirmed by Clinton Magaña ([id number]) on 10/07/2024 4:08:24 PM Referred By: REFERRED SELF Confirmed By: Clinton Magaña
== END 2024-10-06 14:04 | disposition home or self-care (01) | DRG 641 ==
LOC: ED 21:17 → INTOOBSV 10-06 00:36 → SUATTDRO 10-06 00:36 → 2N 10-06 00:36